=== PATIENT | male | born 1955 | race Caucasian/White ===

== ENCOUNTER 2020-08-24 16:36 | Emergency (ER) | payer OTHER, SELFPAY ==
--- NOTE | ~2020-08-24 | XR_ITS ---
XR chest 1V 08/24/2020 17:29 Indication: Cough. Loss of taste and smell. Procedure: AP portable chest Comparison: 10/24/2006 Findings: There is scoliosis. Heart size normal. No focal air space disease, pulmonary edema, pleural effusion or suspected pneumothorax. The lungs are hyperinflated which is consistent with, but not di agnostic of chronic obstructive pulmonary disease. There are surgical changes in the right upper lobe . No acute osseous abnormality. Impression: 1: No acute cardiopulmonary disease. Reviewed, dictated and finalized at location A. [employer] Impression: 1: No acute cardiopulmonary disease.
[2020-08-24 16:56] VITALS: BP 160/106; PULSE 82; RESP 14; TEMP 36.4; O2SAT 100
[2020-08-24 17:04] VITALS: O2SAT 99
--- NOTE | 2020-08-24 17:45 | ED.GENADULT ---
HPI - General Adult General Chief complaint: Upper Respiratory Infection Stated complaint: covid symptoms Time Seen by Provider: 08/24/20 16:46 History of Present Illness HPI narrative: Patient is a 65-year-old male who presents ER with concerns for COVID-19. 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 Reports he started having some mild upper respiratory symptoms a couple days ago including runny nose. [place] it was likely seasonal symptoms he deals with. Today when eating lunch he had lost his sense of taste. No cough or shortness of breath. No fevers or chills or sweats. Related Data Allergies Allergy/AdvReac Type Severity Reaction Status Date / Time No Known Allergies Allergy Verified 08/24/20 17:05 Review of Systems Constitutional: Constitutional: Denies chills, Denies fever(s) and Denies weakness ENT: Denies nasal congestion and Denies sore throat Comments: Rhinorrhea, loss of taste Cardiovascular: Cardiovascular: Denies chest pain Respiratory: Respiratory: Denies cough, Denies dyspnea and Denies wheezing PMFSH Past Medical History Medical History (Updated 08/24/20 @ 17:47 by Freddy Lopes MD) Hypertension Tuberculosis Surgical History Surgical History (Updated 08/24/20 @ 17:46 by Freddy Lopes MD) History of thoracotomy Social History Social History (Updated 08/24/20 @ 17:46 by Freddy Lopes MD) Smoking status: Former smoker Exam Narrative: Exam Narrative: GENERAL: Well-appearing, well-nourished, and in no acute distress. HEAD: Normocephalic, atraumatic. NECK: Supple. CHEST: Clear to auscultation. No respiratory distress. HEART: Regular rate and rhythm. Normal peripheral pulses. EXTREMITIES: Normal range of motion. No edema. NEURO: Alert and oriented x3. PSYCH: Normal mood and affect. Course Course Emergency Course: Unremarkable chest x-ray. Covid swab sent. Discharge home with return precautions and recommend isolation. Patient verbalized understanding. Vital Signs Vital signs: Vital Signs Temperature 97.6 F 08/24/20 16:56 Pulse Rate 82 08/24/20 16:56 Respiratory Rate 14 08/24/20 16:56 Blood Pressure 160/106 H 08/24/20 16:56 Pulse Oximetry 100 08/24/20 16:56 Temperature 97.6 F 08/24/20 16:56 Pulse Rate 82 08/24/20 16:56 Respiratory Rate 14 08/24/20 16:56 Blood Pressure 160/106 H 08/24/20 16:56 Pulse Oximetry 99 08/24/20 17:04 Medical Decision Making Vital Signs Vital Signs: Vital Signs Temperature 97.6 F 08/24/20 16:56 Pulse Rate 82 08/24/20 16:56 Respiratory Rate 14 08/24/20 16:56 Blood Pressure 160/106 H 08/24/20 16:56 Pulse Oximetry 100 08/24/20 16:56 Temperature 97.6 F 08/24/20 16:56 Pulse Rate 82 08/24/20 16:56 Respiratory Rate 14 08/24/20 16:56 Blood Pressure 160/106 H 08/24/20 16:56 Pulse Oximetry 99 08/24/20 17:04 Lab Data Labs: Lab Results 08/24/20 Range/Units 17:03 SARS-CoV-2 RNA (RT-PCR) Pending Imaging Data Radiologist's impression: ITS Impressions Chest X-Ray 08/24/20 17:35 Impression: 1: No acute cardiopulmonary disease. Discharge Plan Discharge Clinical Impression: Person under investigation for COVID-19 Patient Disposition: Home, Self-Care Condition: Stable Instructions: COVID-19 (Coronavirus Disease 2019) (ED) Additional Instructions: Return to the ER if you have increased shortness of breath, you cannot keep down food or water, or you have any additional concerns. You should remain in isolation until cleared by your primary care physician or the health department. Follow-up/Referrals: Murray Burks MD [Primary Care Provider] - 1 Week
[2020-08-24 18:22] VITALS: BP 118/82; PULSE 67; RESP 14; O2SAT 98
[2020-08-25 17:50] LABS: SARS-CoV-2 RNA PCR Positive
== END 2020-08-24 18:22 | disposition home or self-care (01) ==
PROVIDERS: Emergency Provider Emergency Medicine; PCP Family Medicine
DX: U07.1 COVID-19 (principal); I10 Essential (primary) hypertension; Z86.11 Personal history of tuberculosis; Z87.891 Personal history of nicotine dependence
CPT/HCPCS: 71045; 87635; 99283; C9803; U0003